=== PATIENT | male | born 1940 | race Caucasian/White ===

== ENCOUNTER 2017-06-17 15:12 | Inpatient (IN) | payer OTHER ==
[~2017-06-17] VITALS: Ht 170.2 cm; Wt 60.4 kg
[2017-06-17 16:29] LABS: BASOPHIL (%) 0.2 % (0-1); EOSINOPHIL (%) 0.1 % (0-5); HEMATOCRIT 40.8 % (38.0-50.0); HEMOGLOBIN 13.8 G/DL (12.5-16.6); IMMATURE GRANULOCYTE (%) 0.4 % (0.0-0.7); LYMPHOCYTE (%) 1.9 % (15-42); LYMPHOCYTE COUNT 0.2 K/uL (1.0-2.8); MCH 31.4 PG (29.0-34.0); MCHC 33.8 G/DL (30.0-36.0); MCV 92.7 FL (86-99); MONOCYTE COUNT 1.1 K/uL (0-0.8); NEUTROPHIL (%) 88.4 % (45-76); PLATELET COUNT 188 K/uL (156-360); RBC DIS.WIDTH-CV 12.9 % (11.8-14.6); RBC DIS.WIDTH-SD 44.2 % (39-53); WHITE BLOOD COUNT 12.4 K/uL (4.1-10.2)
[2017-06-17 16:34] LABS: INTER. NORMALIZED RATIO 1.2
[2017-06-17 16:37] LABS: ALBUMIN 3.9 g/dL (3.2-4.8); CHLORIDE 105 mEq/L (99-109); POTASSIUM 4.1 mEq/L (3.7-5.4); PTT 27.5 SEC (25-37); SODIUM 141 mEq/L (136-147)
[2017-06-17 16:38] LABS: MAGNESIUM 1.5 mg/dL (1.3-2.7)
[2017-06-17 16:39] LABS: GLUCOSE 127 mg/dL (70-99); TOTAL PROTEIN 6.6 g/dL (6.4-8.3)
[2017-06-17 16:41] LABS: TOTAL BILIRUBIN 3.7 mg/dL (0.0-1.0)
[2017-06-17 16:43] LABS: ALKALINE PHOSPHATASE 210 IU/L (3-129); CREATININE 1.2 mg/dL (0.6-1.3); GFR ESTIMATE (CALCULATED) > 59 mL/min/ (58.99-99999)
[2017-06-17 16:44] LABS: UREA NITROGEN (BUN) 29 mg/dL (9-23)
[2017-06-17 16:46] LABS: ALT (GPT) 719 IU/L (3-49); CREATINE KINASE 98 IU/L (1-294); TOTAL CK 98 IU/L (1-294)
[2017-06-17 16:50] LABS: TROP-I INTERPRETATION NEGATIVE; TROPONIN-I 0.04 ng/mL (0.0-0.30)
[2017-06-17 16:52] LABS: AST (GOT) 1100 IU/L (2-34); CK-MB 1.3 ng/mL (0.0-4.9); CKMB RELATIVE INDEX 1.3 (0.0-3.9)
[2017-06-17 17:42] LABS: LIPASE 1513 U/L (1.0-51.0)
[2017-06-17] MEDS ORDERED: ATROPINE 1100 DROP/5 RIGHT EYE (19:03)
[2017-06-17] MEDS ORDERED: OXYCODONE-APAP1 EACH PO (19:06)
[2017-06-17] MEDS ORDERED: CLONAZEPAM0.5 MG PO (19:06)
[2017-06-17] MEDS ORDERED: LO-DOSE ASPIRIN81 M2 PO (19:07)
[2017-06-17] MEDS ORDERED: FLOMAX0.4 MG PO (19:08)
[2017-06-17] MEDS ORDERED: BACLOFEN10 MG PO (19:09)
[2017-06-17 21:18] LABS: HEMATOCRIT 37.2 % (38.0-50.0); HEMOGLOBIN 12.7 G/DL (12.5-16.6); MCH 31.8 PG (29.0-34.0); MCHC 34.1 G/DL (30.0-36.0); MCV 93.2 FL (86-99); PLATELET COUNT 168 K/uL (156-360); RBC DIS.WIDTH-CV 13.2 % (11.8-14.6); RBC DIS.WIDTH-SD 44.9 % (39-53); RED BLOOD COUNT 3.99 M/uL (4.00-5.50); WHITE BLOOD COUNT 14.9 K/uL (4.1-10.2)
[2017-06-18 07:44] LABS: ALBUMIN 3.3 G/DL (3.2-4.8); ALKALINE PHOSPHATASE 161 IU/L (3-129); ALT (GPT) 440 IU/L (3-49); AST (GOT) 377 IU/L (2-34); CHLORIDE 107 MEQ/L (99-109); CREATININE 0.9 MG/DL (0.6-1.3); GFR ESTIMATE (CALCULATED) > 59 mL/min/ (58.99-99999); POTASSIUM 4.2 MEQ/L (3.7-5.4); SODIUM 140 MEQ/L (136-147); TOTAL BILIRUBIN 1.9 MG/DL (0.0-1.0); TOTAL PROTEIN 6.1 G/DL (6.4-8.3); UREA NITROGEN (BUN) 29 mg/dL (9-23)
[2017-06-18 07:47] LABS: GLUCOSE 78 mg/dL (70-99)
[2017-06-18 14:54] VITALS: BP 132/63
[2017-06-18 20:00] VITALS: BP 148/69
[2017-06-19 00:46] VITALS: BP 171/72
[2017-06-19 05:06] VITALS: BP 125/59
[2017-06-19 06:40] LABS: ALKALINE PHOSPHATASE 136 IU/L (3-129); ALT (GPT) 247 IU/L (3-49); CHLORIDE 110 MEQ/L (99-109); CREATININE 0.8 MG/DL (0.6-1.3); DIRECT BILIRUBIN 0.3 mg/dL (0.0-0.3); GFR ESTIMATE (CALCULATED) > 59 mL/min/ (58.99-99999); GLUCOSE 71 mg/dL (70-99); LIPASE 392 U/L (1.0-51.0); POTASSIUM 3.6 MEQ/L (3.7-5.4); SODIUM 142 MEQ/L (136-147); TOTAL PROTEIN 5.2 G/DL (6.4-8.3); UREA NITROGEN (BUN) 18 mg/dL (9-23)
[2017-06-19 06:44] LABS: AST (GOT) 123 IU/L (2-34); TOTAL BILIRUBIN 0.8 MG/DL (0.0-1.0)
[2017-06-19 07:18] VITALS: BP 148/65
[2017-06-19 11:18] VITALS: BP 121/63
[2017-06-19 11:18] LABS: BASOPHIL (%) 0.4 % (0-1); EOSINOPHIL COUNT 0.3 K/uL (0-0.3); HEMATOCRIT 33.2 % (38.0-50.0); HEMOGLOBIN 11.4 G/DL (12.5-16.6); LYMPHOCYTE (%) 8.2 % (15-42); LYMPHOCYTE COUNT 0.6 K/uL (1.0-2.8); MCH 32.6 PG (29.0-34.0); MCHC 34.3 G/DL (30.0-36.0); MCV 94.9 FL (86-99); MONOCYTE (%) 10.3 % (3-12); MONOCYTE COUNT 0.7 K/uL (0-0.8); NEUTROPHIL (%) 76.1 % (45-76); NEUTROPHIL COUNT 5.4 K/uL (1.8-6.4); PLATELET COUNT 132 K/uL (156-360); RBC DIS.WIDTH-CV 13.4 % (11.8-14.6); WHITE BLOOD COUNT 7.1 K/uL (4.1-10.2)
[2017-06-19 15:16] VITALS: BP 121/59
[2017-06-19 19:00] VITALS: BP 121/63
[2017-06-20 00:07] VITALS: BP 133/60
[2017-06-20 04:07] VITALS: BP 120/64
[2017-06-20 05:50] LABS: HEMATOCRIT 33.5 % (38.0-50.0); HEMOGLOBIN 11.2 G/DL (12.5-16.6); MCH 31.8 PG (29.0-34.0); MCHC 33.4 G/DL (30.0-36.0); MCV 95.2 FL (86-99); PLATELET COUNT 126 K/uL (156-360); RBC DIS.WIDTH-CV 13.2 % (11.8-14.6); RBC DIS.WIDTH-SD 46.5 % (39-53); RED BLOOD COUNT 3.52 M/uL (4.00-5.50); WHITE BLOOD COUNT 5.8 K/uL (4.1-10.2)
[2017-06-20 06:29] LABS: ALKALINE PHOSPHATASE 119 IU/L (3-129); ALT (GPT) 183 IU/L (3-49); CHLORIDE 111 MEQ/L (99-109); CREATININE 0.9 MG/DL (0.6-1.3); GFR ESTIMATE (CALCULATED) > 59 mL/min/ (58.99-99999); GLUCOSE 75 mg/dL (70-99); POTASSIUM 3.5 MEQ/L (3.7-5.4); SODIUM 142 MEQ/L (136-147); UREA NITROGEN (BUN) 12 mg/dL (9-23)
[2017-06-20 06:30] LABS: AST (GOT) 51 IU/L (2-34); TOTAL BILIRUBIN 0.6 MG/DL (0.0-1.0)
[2017-06-20 08:07] VITALS: BP 151/79
[2017-06-20] MEDS ORDERED: LOPRESSOR25 MG PO (14:31)
[2017-06-20] MEDS ORDERED: FLAGYL500 MG PO (14:31)
[2017-06-20 16:31] LABS: APPEARANCE CLEAR ((CLEAR)); BILIRUBIN NEGATIVE; BLOOD NEGATIVE; COLOR YELLOW ((YELLOW)); GLUCOSE (STRIP) NEGATIVE; KETONES NEGATIVE; LEUKOCYTES TRACE; NITRITE NEGATIVE; PROTEIN (STRIP) NEGATIVE; SPECIFIC GRAVITY 1.013 (1.000-1.030); UROBILINOGEN 0.2 MG/DL (0.2-1.0)
[2017-06-20 16:41] LABS: BACTERIA NONE SEEN /HPF; EPITHELIAL CELLS RARE /HPF; MUCUS TRACE /LPF; RED BLOOD CELLS 0-5 /HPF (0-5); WHITE BLOOD CELLS 0-5 /HPF (0-5)
== END 2017-06-20 17:21 | disposition home or self-care (01) | DRG 439 ==
LOC: EME 15:12 → EDOF 19:55 → 5SOUTH 19:55 → ENRESERV 20:02 → EDOF 21:32 → ENRESERV 06-18 13:30 → 4EAST 06-18 14:46 → ENRESERV 06-18 23:05 → 5SOUTH 06-18 23:53
PROVIDERS: Emergency Medicine; Internal Medicine; Physician Assistant; Surgery
DX: K85.10 Biliary acute pancreatitis without necrosis or infection (principal); K80.10 Calculus of gallbladder with chronic cholecystitis without obstruction; R94.5 Abnormal results of liver function studies; Z95.1 Presence of aortocoronary bypass graft; I25.10 Atherosclerotic heart disease of native coronary artery without angina pectoris; H54.61 Unqualified visual loss, right eye, normal vision left eye; H40.9 Unspecified glaucoma; G89.4 Chronic pain syndrome; K30 Functional dyspepsia; I10 Essential (primary) hypertension; E78.5 Hyperlipidemia, unspecified; H40.1112 Primary open-angle glaucoma, right eye, moderate stage; I45.10 Unspecified right bundle-branch block; R00.0 Tachycardia, unspecified; R09.02 Hypoxemia; Z87.891 Personal history of nicotine dependence; K52.9 Noninfective gastroenteritis and colitis, unspecified; Z79.82 Long term (current) use of aspirin; I49.40 Unspecified premature depolarization
CPT/HCPCS: 71045; 74176; 74183; 76705; 80048; 80053; 80076; 81003; 82550; 82553; 83605; 83690; 83735; 84484; 85025; 85027; 85610; 85730; 93005; 99281; 99285; C9113; J0744; J1650; J7030; S0030

== ENCOUNTER 2017-06-23 10:39 | Day surgery (SDC) | payer OTHER ==
[~2017-06-23] VITALS: Ht 170.2 cm; Wt 60.4 kg
[~2017-06-23 10:39] MED LIST: ATROPINE 1100 DROP/5 RIGHT EYE; BACLOFEN10 MG PO; CLONAZEPAM0.5 MG PO; FLAGYL500 MG PO; FLOMAX0.4 MG PO; LO-DOSE ASPIRIN81 M2 PO; LOPRESSOR25 MG PO; OXYCODONE-APAP1 EACH PO
[2017-06-23 11:17] VITALS: BP 169/73
[2017-06-23] MEDS ORDERED: COLACE100 MG PO (15:19)
[2017-06-23] MEDS ORDERED: PERCOCET 5/31 TABLET PO (15:20)
[2017-06-23 16:44] VITALS: BP 140/64
[2017-06-23 17:40] VITALS: BP 145/66
[2017-06-23 18:40] VITALS: BP 158/68
== END 2017-06-23 19:00 | disposition home or self-care (01) ==
LOC: SDC 10:39
PROC: 0FT44ZZ Resection of Gallbladder, Percutaneous Endoscopic Approach (ICD-10-PCS; principal; 2017-06-23)
DX: K80.10 Calculus of gallbladder with chronic cholecystitis without obstruction (principal); K85.10 Biliary acute pancreatitis without necrosis or infection; I25.10 Atherosclerotic heart disease of native coronary artery without angina pectoris; Z95.1 Presence of aortocoronary bypass graft; H40.9 Unspecified glaucoma; H54.61 Unqualified visual loss, right eye, normal vision left eye; G89.4 Chronic pain syndrome; E78.5 Hyperlipidemia, unspecified; I10 Essential (primary) hypertension; Z82.49 Family history of ischemic heart disease and other diseases of the circulatory system; Z87.891 Personal history of nicotine dependence; Z79.82 Long term (current) use of aspirin
CPT/HCPCS: 82150; 88304; J0131; J0690; J1100; J1170; J2250; J2405; J2710; J3010